=== PATIENT | male | born 1975 | race Caucasian/White ===

== ENCOUNTER 2022-04-05 19:54 | Emergency (ER) | payer BC ==
[2022-04-05] MEDS ORDERED: niCARdipine/Normal Saline 20 MG in Premix Bag 1 BAG IV SCH (20:15)
[2022-04-05] MEDS ORDERED: niCARdipine/Normal Saline 200 ML ONE (20:16)
[2022-04-05 20:44] LABS: CHLORIDE,CL 105 mmol/L (98-107); SODIUM,NA 142 mmol/L (136-145)
[2022-04-05 20:45] LABS: ANION GAP 17.1 mmol/L (5-15); ESTIMATED GFR 76 mL/min (>=60)
== END 2022-04-05 20:18 | disposition short-term general hospital (02) ==
LOC: VM.ED 19:54 → EDBD 19:54 → VM.ED 20:18
DX: I61.0 Nontraumatic intracerebral hemorrhage in hemisphere, subcortical (principal)
CPT/HCPCS: 36415; 80053; 82550; 84484; 85025; 85610; 96374; 99284-25